=== PATIENT | female | born 1965 | race Caucasian/White ===

== ENCOUNTER → 2017-04-22 | Day surgery (SDC) | payer OTHER ==
[~2017-04-22] VITALS: Ht 162.6 cm; Wt 89.8 kg
[~2017-04-22] MED LIST: PHENTERMINE H PO; TOPAMAX50 M1 PO
--- NOTE | 2017-04-24 11:00 | Operative Report ---
Operative/Inv Procedure Report Surgery Date: 04/22/17 Name of Procedure: Excision of 6 cm subfascial deep lipoma left lateral infraclavicular anterior chest wall Pre-Operative Diagnosis: Lipoma chest wall Post-Operative Diagnosis: Same deep Estimated Blood Loss: scant Surgeon/Home Planning Consultant Salesperson: ROXANA HARMAN,JUAN Lopez Anesthesia: local monitored anesthesi Operative/Procedure Note Note: Patient was placed on the OR table supine after induction of anesthesia she was repositioned with back up head turned to the right and arm slightly abducted this mass was deep and palpable better in certain positions. We aimed an incision over it oriented along the skin lines we louis a line infiltrated local anesthetic then made the 4 cm incision with a 15 blade we deepened it sharply just through the dermis were part of the lipoma was apparent already was very lobulated, and family continue to follow it around dissecting it from subcutaneous fat and deeper away from the muscle care was taken not to injure the cephalic vein inferiorly part of this was deepened beneath the muscle subfascial and its splayed out it was larger. It was completely removed in 1 piece measuring 6 cm we checkedfor hemostasis irrigated and closed back up in layers using interrupted 3-0 Vicryl sutures deep and 40 subdermally and then a running 4-0 nylon for the skin itself followed by bacitracin Telfa and Tegaderm. EBL minimal lap and sponge counts correct wound expectancy clean IV fluids crystalloid complications none patient tolerated the procedure well was extubated and returned to recovery room in satisfactory condition.
== END ==
LOC: STS 04-08 07:00
DX: D21.3 Benign neoplasm of connective and other soft tissue of thorax (principal); E66.3 Overweight; M67.439 Ganglion, unspecified wrist
CPT/HCPCS: J0131; J0690; J1100; J2250; J2405